=== PATIENT | female | born 1980 | race African-American/Black ===

== ENCOUNTER → 2021-01-06 | Outpatient (CLI) | payer OTHER ==
[~2021-01-06] MED LIST: ALBUTEROL SULFAT3 M3 IH; LASIX 20MG TABL20 MG PO; PREDNISONE20 MG PO; PROAIR HFA0.09 MG/AC IH; RT ALBUTER2.5 MG/0.5 IH
[2021-01-06 17:24] LABS: BASO # 0.1 (0.0-0.2); BASO % 0.5 % (0.0-2.0); EOS # 0.6 (0.0-0.7); EOS % 6.1 % (0-4.0); GRAN # 6.8 (1.4-6.5); GRAN % 65.2 % (42.2-75.2); HEMOGLOBIN 10.2 g/dl (12.5-16.0); LYMPH # 2.1 (1.2-3.4); LYMPH % 20.3 % (20.0-51.0); MEAN CELL VOLUME 74 fl (80.0-100.0); MEAN CORPUSCULAR HEMOGLOBIN 22 pg (27.0-31.0); MEAN CORPUSCULAR HGB CONC 30 g/dl (33.0-37.0); MEAN PLATELET VOLUME 9.1 fl (7.4-10.4); MONO # 0.8 (0.1-0.6); MONO % 7.2 % (1.7-9.3); PLATELET COUNT 265 K/mm3 (130-400); RED BLOOD COUNT 4.61 M/mm3 (4.10-5.30); REDCELL DISTRIBUTION WIDTH-CV 16.8 % (11.5-14.5)
[2021-01-06 17:26] LABS: HEMATOCRIT 33.9 % (37.0-47.0)
[2021-01-06 19:10] LABS: ALANINE AMINOTRANSFERASE 13 U/L (4-34); ALBUMIN 3.9 gm/dL (3.5-5.0); ALKALINE PHOSPHATASE 59 U/L (50-136); ANION GAP 8 mmol/L (7-16); AST,SGOT 19 U/L (15-37); BILIRUBIN,TOTAL < 0.1 mg/dL (0.0-1.0); BLOOD UREA NITROGEN 11 mg/dL (7-17); C-REACTIVE PROTEIN 0.8 mg/dL (0.0-0.9); CARBON DIOXIDE 24 mmol/L (22-30); CHLORIDE 105 mmol/L (98-107); GLUCOSE 124 mg/dL (74-106); POTASSIUM 4.1 mmol/L (3.4-5.0); SODIUM 137 mmol/L (137-145); TOTAL PROTEIN 7.2 gm/dL (6.4-8.2)
[2021-01-06 19:20] LABS: TROPONIN-I < 0.012 ng/mL (0.000-0.035)
== END ==
LOC: COL.RAD 16:54
PROVIDERS: Registered Nurse
DX: R07.9 Chest pain, unspecified (principal); R06.02 Shortness of breath

== ENCOUNTER 2022-03-09 08:12 | Emergency (ER) | payer OTHER ==
[~2022-03-09] VITALS: Ht 167.6 cm; Wt 118.2 kg
[2022-03-09 08:36] VITALS: BP 135/90; TEMP 99.1
[2022-03-09 09:14] LABS: STREP SCREEN NEGATIVE
[2022-03-09] MEDS ORDERED: AMOXICILLIN 8751 TAB PO (11:45)
[2022-03-09] MEDS ORDERED: ZOFRAN ODT4 MG PO (11:45)
[2022-03-09] MEDS ORDERED: ASTELIN NASAL S34 ML NS (11:45)
[2022-03-09] MEDS ORDERED: TUSS PO (11:45)
[2022-03-09 12:00] VITALS: PULSE 91
== END 2022-03-09 12:00 | disposition home or self-care (01) ==
LOC: COL.ER 08:12
PROVIDERS: Emergency Medicine
DX: J06.9 Acute upper respiratory infection, unspecified (principal); Z20.822 Contact with and (suspected) exposure to COVID-19